=== PATIENT | male | born 1975 | race Caucasian/White ===

== ENCOUNTER 2021-05-29 20:32 | Emergency (ER) | payer OTHER ==
[~2021-05-29] VITALS: Ht 190.5 cm; Wt 100.0 kg
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
[2021-05-29 21:28] LABS: BASO # 0.1 x10^3/uL (0.0-0.2); BASO % 1 % (0-3); EOS # 0.1 x10^3/uL (0.0-0.7); EOS % 2 % (0-3); HEMATOCRIT 37.4 % (39.0-53.0); HEMOGLOBIN 13.2 g/dL (13.0-17.5); LYMPH # 1.8 x10^3/uL (1.0-4.8); LYMPH % 33 % (24-48); MEAN CORPUSCULAR HEMOGLOBIN 32 pg (25-35); MEAN CORPUSCULAR HGB CONC 35 g/dL (31-37); MEAN CORPUSCULAR VOLUME 91 fL (79-100); MONO # 0.5 x10^3/uL (0.0-1.1); MONO % 9 % (0-9); NEUT # 3.1 x10^3/uL (1.8-7.7); NEUT % 55 % (31-73); PLATELET COUNT 232 x10^3/uL (140-400); RED BLOOD COUNT 4.12 x10^6/uL (4.30-5.70); WHITE BLOOD COUNT 5.5 x10^3/uL (4.0-11.0)
[2021-05-29 21:37] LABS: GFR 81.6; POTASSIUM 4.2 mmol/L (3.5-5.1)
--- NOTE | 2021-05-29 21:45 | RAD ---
EXAMINATION: CT cervical spine without IV contrast INDICATION:45 years, Male, neck pain after fall. COMPARISON: None TECHNIQUE: CT of the cervical spine was obtained using contiguous spiral imaging from the skull base to the upper thoracic level. Sagittal and coronal 2D reformatted series were provided by the [facility]. Soft tissue and bone window algorithms were reviewed. Exposure: One or more of the following individualized dose reduction techniques were utilized for thi s examination: 1. Automated exposure control 2. Adjustment of the mA and/or kV according to patient size 3. Use of iterative reconstruction technique. FINDINGS: Posterior hardware fusion with metallic rods and transpedicular screws extend from C3 to C7, associat ed with laminectomy changes. Anterior hardware fusion with disc spacer at C5-6. No evidence of hardwa re loosening or failure. Anatomic alignment of the cervical spine is maintained. Neither fracture, chan bluxation, nor traumatic spondylolisthesis is seen. The vertebral body heights are preserved. Multile flavia degenerative changes with disc space narrowing and osteophytes. Multilevel bilateral uncovertebra l arthropathy. There is no evidence of a large intraspinal hematoma. The prevertebral and paravertebr al soft tissues are within normal limits. IMPRESSION: 1. No evidence of acute fracture or subluxation of the cervical spine. 2. Posterior hardware fusion with laminectomy changes extend from C3 to C7. Anterior hardware fusion with disc spacer at C5-6. No evidence of hardware failure. 3. Multilevel degenerative changes. Electronically signed by: Dawood Smith MD (05/29/2021 9:43 PM) [facility]
--- NOTE | 2021-05-29 21:49 | RAD ---
Exam: CT the thoracic spine without contrast INDICATION: History of discectomy, fell on back with thoracic pain TECHNIQUE: Sequential axial images through the thoracic spine obtained without IV contrast. Sagittal and coronal reformatted images were reconstructed from the axial data and reviewed. Exposure: One or more of the following in the visualized dose reduction techniques were utilized for this examination: 1. Automated exposure control 2. Adjustment of the MA and/or KV according to patient size 3. Use of iterative of reconstructive technique Comparisons: None FINDINGS: Vertebral body heights and alignment are well-maintained. Vertebroplasty changes are noted at T5 vert ebral body. Fracture to the thoracic spine is not identified. No significant spondylotic change identified in the thoracic spine. Visualized paraspinal soft tissues are unremarkable. IMPRESSION: Negative CT thoracic spine for acute traumatic injury. Electronically signed by: Cameron Kowalski MD (05/29/2021 9:47 PM) [facility]
[2021-05-29] MEDS ORDERED: DOXY100T PO (22:07)
[2021-05-29 22:40] VITALS: BP 137/79
--- NOTE | 2021-05-30 02:19 | EKG ---
[facility] [address] [place] [address] Test Date: 2021-05-29 Test Time: 20:42:16 Pat Name: BAIRON DANIEL Department: Room: Gender: M [employer]: : 1975 Requested By: JUDY TEJEDA Order Number: [id number] Reading MD: Measurements Intervals Sheldon Rate: 48 P: MO: QRS: 71 QRSD: 104 T: 66 QT: 404 QTc: 364 Interpretive Statements IRREGULAR RHYTHM, NO P-WAVE FOUND NO SPECIFIC ECG ABNORMALITIES RI6.02 No previous ECG available for comparison
== END 2021-05-29 22:40 ==
LOC: EEVIPCON 20:32 → ER 20:32
DX: R55 Syncope and collapse (principal); M54.6 Pain in thoracic spine; M54.2 Cervicalgia; L03.312 Cellulitis of back [any part except buttock and flank]
CPT/HCPCS: 36415; 72125; 72128; 80048; 85025; 93005; 99285-25